=== PATIENT | female | born 1965 | race Caucasian/White ===

== ENCOUNTER 2019-07-17 09:57 | Emergency (ER) | payer OTHER ==
[~2019-07-17] VITALS: Ht 160 cm; Wt 71.2 kg
[2019-07-17] MEDS ORDERED: WELLBUTRIN SR200 MG PO (10:24)
[2019-07-17] MEDS ORDERED: LAMICTAL200 MG PO (10:25)
[2019-07-17] MEDS ORDERED: INVEGA3 MG PO (10:25)
[2019-07-17] MEDS ORDERED: RITALIN10 MG PO (10:26)
[2019-07-17 10:28] LABS: ABSOLUTE NEUTROPHILS 6.4 thou/uL (1.4-8.2); BASOPHILS 0.3 % (0.0-2.0); EOSINOPHILS 1.1 % (0.0-3.0); HEMATOCRIT 32.9 % (37.0-47.0); HEMOGLOBIN 11.1 gm/dL (12.0-15.0); LYMPHOCYTES 12.8 % (24.0-44.0); MCH 31.3 pg (26.0-34.0); MCHC 33.7 g/dL (28.0-37.0); MCV 93.1 fL (80.0-100.0); MONOCYTES 6.5 % (1.0-8.0); PLATELET COUNT 205 thou/uL (150-400); POLYS 79.3 % (36.0-66.0); RBC 3.54 mil/uL (4.20-5.00); RDW 12.4 % (10.5-14.5)
[2019-07-17 10:36] LABS: ANION GAP 8 mmol/L (7-16); BUN 20 mg/dL (7-18); CALCIUM 9.4 mg/dL (8.5-10.1); CHLORIDE 100 mmol/L (98-107); CO2 24 mmol/L (21-32); CREATININE 1.4 mg/dL (0.6-1.0); GLUCOSE 97 mg/dL (74-106); POTASSIUM 4.2 mmol/L (3.5-5.1); SODIUM 132 mmol/L (136-145)
[2019-07-17 10:46] LABS: ALBUMIN 3.9 g/dL (3.4-5.0); SGOT 16 U/L (15-37); SGPT 25 U/L (30-65); TOTAL BILIRUBIN 0.4 mg/dL (<0.1-1.0); TOTAL PROTEIN 7.8 g/dL (6.4-8.2); TROPONIN-I <0.06 ng/mL (<0.06)
[2019-07-17 11:30] VITALS: BP 141/71
--- NOTE | 2019-07-20 15:48 | EKG ---
[place] [address] [address] [place] [employer] [place] [address] ELECTROCARDIOGRAM REPORT Name: RORYJACKIE SAWYER Room #: [facility]P [facility] [id number] Admission: 07/17/19 Attend Phys: Discharge: 07/17/19 Date of : 65 Report #: [id number] THIS REPORT FOR: //name// [facility] ED Test Date: 2019-07-17 Test Time: 10:10:09 Pat Name: JACKIE VALADEZ Department: Room: Gender: F [employer] Supervisor: : [id number] Requested By: Chirag Davila Order Number: [id number] MD: Ilan Dubois Measurements Intervals [place] Rate: 102 P: 34 MA: 152 QRS: 19 QRSD: 79 T: 21 QT: 351 QTc: 458 Interpretive Statements Sinus tachycardia Low voltage, precordial leads Borderline T abnormalities, anterior leads Baseline wander in lead(s) V2 No previous ECG available for comparison Electronically Signed On 07-20-2019 15:47:51 [employer] by Ilan Dubois [email or web address] <ELECTRONICALLY SIGNED> By: Ilan Dubois MD 07/20/19 1547 [id number] Ilan Dubois MD /KAREN
== END 2019-07-17 11:44 | disposition home or self-care (01) ==
LOC: ER 09:57
PROVIDERS: Emergency Medicine
DX: R42 Dizziness and giddiness (principal); F31.9 Bipolar disorder, unspecified